=== PATIENT | male | born 1960 | race Caucasian/White ===

== ENCOUNTER 2023-07-25 13:08 | Outpatient (AMB) | payer OTHER, MEDICARE, SELFPAY ==
--- NOTE | 2023-07-25 13:23 | MHC.OFFVIS ---
Intake Vital Signs 07/25/23 13:33 Height 6 ft Weight 214 lb 8 oz BMI 29.1 BP 113/68 Blood Pressure Location Lt brachial Position Sitting Respiration 16 Pulse 95 Pulse Source Pulse Oximeter Pulse Oximetry (%) 96 Oxygen Delivery Method Room Air Intake Visit Reasons: Cervical and Lumbar Back Pain Allergies morphine Allergy (Severe, Verified 07/25/23 13:20) Vomiting sulfar Allergy (Intermediate, Uncoded 07/25/23 13:20) Stomach Upset HPI HPI Comments History of Present Illness Details Bernardo is a very pleasant 62 year old male who presents to the office today, accompanied by his for consideration of ITDDD. He is currently under treatment at [facility] and was referred here for intactable back pain that has failed response to steroid injections, surgery, NSAIDs, chronic opioid therapy and SCS. Patient states that he has persistent pain of the lower back with radiation down the right leg to the foot. Pain is relentless. Patient status post lumbar fusion he believes at L5 and also two fusions of the cervical spine. He has SCS that he states was placed for his right leg pain which is currently in use, he reports some improvement in right leg pain but not enough and it does not help his back at all. He is currently prescribed 450mcg belbuca BID and Percocet 10mg QID, these provide minimal relief that is not sustained. They have tried topical pain patches but those did not help either. Pain is worse with sitting for extended periods of time and walking. He reports frustration as he has been dealing with this pain for many years without relief. In terms of muscle damage condition is described as stabbing, sharp, tingling, numb, pins and needles. Pain is negatively impacting patient's enjoyed left, general activity, mood, normal work, rotational activities and walking. Review of Systems Const All systems reviewed & are unremarkable except as noted in HPI and below Physical Exam Vital Signs: Last Vital Signs Pulse 95 07/25/23 13:33 Resp 16 07/25/23 13:33 BP 113/68 07/25/23 13:33 Pulse Ox 96 07/25/23 13:33 Oxygen Delivery Method Room Air 07/25/23 13:33 BMI result Body Mass Index 29.1 General: awake, alert, oriented. Answers questions appropriately. Fully engaged in examination. Skin: warm, dry, intact HEENT: Normocephalic. Hearing intact. Cardiac: External chest normal in appearance. Respiratory: No cough, audible wheezing or stridor. Abdomen: without gross distension. MS: No obvious swelling or deformities. Able to transition from sit to stand unassisted. Ambulates with bilaterally normal heel strike and toe off SLR with and without dorsiflexion positive on right Tender to palpation over lumbar paraspinal muscles Neurological: Oriented to person, place, time and situation. Thought process intact. Psychiatric: Appropriate mood and affect. Good judgment and insight. Assessment & Plan Assessment & Plan (1) Post laminectomy syndrome: Code(s): M96.1 - Postlaminectomy syndrome, not elsewhere classified (2) Lumbar radiculopathy: Code(s): M54.16 - Radiculopathy, lumbar region (3) Chronic pain: Code(s): G89.29 - Other chronic pain Plan Bernardo is a very pleasant 62-year-old male who presented to the office today for evaluation management of his chronic lower back pain. Patient was referred here from his current pain management doctor for intrathecal pain pump device consideration. Patient has exhausted all other means of pain management including surgical intervention, steroid injections, chronic opioid therapy, NSAIDs and spinal cord stimulator. Lengthy discussion today with patient and his about intrathecal drug delivery device including trial which would require holding current narcotic pain medication for 24 hours prior and device implant which require holding the medications for 30 days prior to procedure. They were also advised that a psych eval would be required, pamphlets for [employer] intrathecal device and Advantage point were provided. X-ray LS/TS ordered for review. Advised patient we need to evaluate the area to ensure there is adequate access to the intrathecal space before we can plan for the procedure. All questions and concerns were answered during the visit today. Will follow-up with patient after x-rays are reviewed. Patient has no further questions and is in agreement with the plan. Orders: Orders XR lumbar spine 4V min Today M54.9 - Dorsalgia, unspecified XR thoracic spine 3V Today M54.9 - Dorsalgia, unspecified Coding Level of Care Code New Pt Level 4 (53337) Diagnoses Post laminectomy syndrome M96.1 Lumbar radiculopathy M54.16 Chronic pain G89.29
[2023-07-25 13:33] VITALS: BP 113/68; PULSE 95; RESP 16; O2SAT 96; BMI 29.1
== END 2023-07-25 14:10 | disposition home or self-care (01) ==
PROVIDERS: Visit Provider Registered Nurse Emergency
DX: M96.1 Postlaminectomy syndrome, not elsewhere classified (principal); M54.16 Radiculopathy, lumbar region; G89.29 Other chronic pain
CPT/HCPCS: 99204

== ENCOUNTER 2023-07-25 13:08 | Outpatient (REF) | payer OTHER, MEDICARE, SELFPAY ==
--- NOTE | ~2023-07-25 | XR_ITS ---
EXAMINATION: XR THORACIC SPINE CLINICAL INFORMATION: Dorsalgia. COMPARISON: None available. TECHNIQUE: Frontal, lateral and swimmer's views of the thoracic spine were obtained. FINDINGS: Vertebral body heights and alignment are normal. The thoracic disc spaces are well-maintained. No acute fracture or spondylolisthesis is seen. There is multi-level thoracic spondylosis, most pronounced at T11-T12, where it is moderate. The posterior elements are intact. A spinal stimulator device is seen, with distal electrode tip located at T9. There is lower cervical orthopedic hardware. The paravertebral soft tissues are unremarkable. XR/XR lumbar spine 4V min IMPRESSION: 1. No acute fracture or spondylolisthesis is seen. 2. The thoracic disc spaces are relatively well-maintained. 3. There is multi-level mild to moderate thoracic spondylosis. EXAMINATION: XR LUMBOSACRAL SPINE CLINICAL INFORMATION: Pain. COMPARISON: None TECHNIQUE: AP, bilateral oblique and lateral views of the lumbar spine and lateral view of the lumbosacral junction. FINDINGS: Vertebral body alignment is normal. There is a minimal L1 anterior wedge compression fracture. The lumbar disc spaces are well-maintained. There has been a prior L5-S1 posterior fusion and discectomy, with intact posterior fixator rods, fixator screws and disc spacers. No hardware failure or loosening is seen. There is no acute fracture or spondylolisthesis. There is multi-level mild to moderate spondylosis, most pronounced at T12-L1, where it is moderate. The paravertebral soft tissues are unremarkable. Spinal stimulator leads appear intact. IMPRESSION: 1. An age-indeterminate minimal L1 anterior wedge compression fracture is seen. 2. There is well-maintained alignment status-post L5-S1 posterior fusion and discectomy. No hardware failure or loosening is seen.
--- NOTE | ~2023-07-25 | XR_ITS ---
EXAMINATION: XR THORACIC SPINE CLINICAL INFORMATION: Dorsalgia. COMPARISON: None available. TECHNIQUE: Frontal, lateral and swimmer's views of the thoracic spine were obtained. FINDINGS: Vertebral body heights and alignment are normal. The thoracic disc spaces are well-maintained. No acute fracture or spondylolisthesis is seen. There is multi-level thoracic spondylosis, most pronounced at T11-T12, where it is moderate. The posterior elements are intact. A spinal stimulator device is seen, with distal electrode tip located at T9. There is lower cervical orthopedic hardware. The paravertebral soft tissues are unremarkable. XR/XR thoracic spine 3V IMPRESSION: 1. No acute fracture or spondylolisthesis is seen. 2. The thoracic disc spaces are relatively well-maintained. 3. There is multi-level mild to moderate thoracic spondylosis. EXAMINATION: XR LUMBOSACRAL SPINE CLINICAL INFORMATION: Pain. COMPARISON: None TECHNIQUE: AP, bilateral oblique and lateral views of the lumbar spine and lateral view of the lumbosacral junction. FINDINGS: Vertebral body alignment is normal. There is a minimal L1 anterior wedge compression fracture. The lumbar disc spaces are well-maintained. There has been a prior L5-S1 posterior fusion and discectomy, with intact posterior fixator rods, fixator screws and disc spacers. No hardware failure or loosening is seen. There is no acute fracture or spondylolisthesis. There is multi-level mild to moderate spondylosis, most pronounced at T12-L1, where it is moderate. The paravertebral soft tissues are unremarkable. Spinal stimulator leads appear intact. IMPRESSION: 1. An age-indeterminate minimal L1 anterior wedge compression fracture is seen. 2. There is well-maintained alignment status-post L5-S1 posterior fusion and discectomy. No hardware failure or loosening is seen.
== END 2023-07-25 13:09 | disposition home or self-care (01) ==
LOC: HO.XRAY 13:08
PROVIDERS: Visit Provider Registered Nurse Emergency
DX: M54.9 Dorsalgia, unspecified (principal)
CPT/HCPCS: 72072; 72110